=== PATIENT | male | born 1945 | race Caucasian/White ===

== ENCOUNTER 2017-03-23 12:10 | Emergency (ER) | payer MEDICARE, OTHER ==
[2017-03-23] MEDS ORDERED: methylPREDNISolone Sodium Succinate 125 MG/2 ML SDV ONE (12:22)
[2017-03-23] MEDS ORDERED: methylPREDNISolone Sodium Succinate 125 MG/2 ML SDV IVPUSH ONE (12:23)
[2017-03-23] MEDS ORDERED: Albuterol/Ipratropium 3.0-0.5 MG/3 ML Neb Soln ONE ×2 (12:23→12:35)
[2017-03-23] MEDS ORDERED: Aspirin 81 MG Tab.Chew PO ONE (12:30)
[2017-03-23] MEDS ORDERED: Nitroglycerin/D5W 25 MG/250 ML BOTTLE IV SCH (12:30)
[2017-03-23] MEDS: Terbutaline 1 MG/ML SDV SUBCUT SCH ×2 (12:31→13:05)
[2017-03-23] MEDS: Nitroglycerin 0.4 MG Tab.SL SL PRN ×3 (12:33→12:43)
[2017-03-23] MEDS ORDERED: Morphine 4 MG/ML Syringe IVPUSH STA (12:35)
[2017-03-23] MEDS: Sodium Chloride 0.9% 10 ML Syringe FLUSH PRN ×4 (12:38→13:07)
[2017-03-23] MEDS ORDERED: Sodium Chloride 0.9% 1,000 ML IV SCH ×2 (12:45→13:15)
[2017-03-23] MEDS ORDERED: cefTRIAXone 1,000 MG in Sodium Chloride 0.9% 50 ML IV ONE (12:47)
[2017-03-23] MEDS ORDERED: Albuterol/Ipratropium 3.0-0.5 MG/3 ML Neb Soln NEB ONE ×2 (13:24→13:25)
[2017-03-23 13:26] VITALS: BP 160/57
[2017-03-23] MEDS ORDERED: FLU Vacc QS 2017-18 (36mos UP)/PF 60 MCG/0.5 ML Syringe IM ONE (14:00)
--- NOTE | 2017-03-23 14:36 | CR ---
INDICATION: Short of breath. CHEST: An AP upright portable view of the chest was obtained. Calcification is noted in the arch of the aorta. Bipolar pacemaker leads are now seen with the ventricular lead tip in the area of the apex of the right ventricle. The heart appeared somewhat enlarged. Upper lung field pulmonary vasculature is prominent, suggesting the possibility of CHF. Interstitial markings are prominent, suggesting interstitial lung edema. It is difficult to exclude areas of patchy bronchopneumonia at the lung bases. Overlying EKG leads are noted. IMPRESSION: 1. ASHD, cardiomegaly, CHF, interstitial lung edema. The degree of CHF and interstitial lung edema may be somewhat increased compared with the previous study, which is approximately 2 years previous. 2. Cannot exclude areas of patchy bronchopneumonia in the lung bases. 3. Bipolar pacemaker leads. MTDD
[2017-03-23] MEDS ORDERED: Terbutaline 1 MG/ML SDV SUBCUT ONE (17:16)
--- NOTE | 2017-03-24 11:36 | ER ---
DATE SEEN: 03/23/2017 ADDENDUM: As the paramedics were lifting him up to get him off his cart and onto his gurney, he began to have recurrent episodes of cough and bronchospasm. 0.25 Terbutaline given subcu and also DuoNeb initiated. He is stable and ready for transport. The latter was given in the rig and terbutaline given to the patient before he left the ER. ASSESSMENT: Probable bronchospasm, acute. Mirroring what he experienced prior to his acceleration of symptoms and deterioration of respiratory status. At this time, the coughing spell was controlled. /[id number] BRIAN/RIAN
--- NOTE | 2017-03-24 12:52 | ER ---
DATE SEEN: 03/23/2017 TIME SEEN: The patient was seen on arrival at 1210 hours. HISTORY OF PRESENT ILLNESS: This 72-year-old male with chronic obstructive lung disease, noted he took his dog to the veterinary this morning and then after he got out, he went shopping. He became progressively more short of breath and drove himself to the hospital. On arrival, he was an extremis. He had marked difficulty breathing and bronchospasm. PRIMARY SURVEY: A. Airway - open and patent. B. Breathing - air exchange in lungs, decreased air exchange. C. Elevated blood pressure 184/87, 195/95, 161/74. The patient has marked dyspnea, marked accessary muscle breathing and has difficulty exchanging air. Lips, perioral cyanosis, mild. No chest wall discomfort. Extremities without edema. Abdomen, no bruits noted. Heart, no rhythm disturbance. The following measures were instituted. The patient was given stat terbutaline 0.25 subcu, DuoNeb, flush of 300 mL normal saline, EKG and labs obtained. Ceftriaxone 1000 mg IV, flu vaccine (later), methylprednisolone, Solu-Medrol 125 mg IV, and morphine IV push 4 mg. Other studies obtained; blood cultures, urinalysis, chest x-ray. Stat chest x- ray demonstrated infiltrate in right lower lobe. SECONDARY EXAMINATION: VITAL SIGNS: Blood pressure coming down at 158/80, heart rate no longer 114 and has come down to 92. Respirations at the highest were 30 and came down to 22. End-tidal CO2 remained at 20 and came down to 21 and stayed at 21. GENERAL: Alert man, unshaven. Has mustache. He no longer has anxiety about breathing. He is already 20% improved. NECK AND HEENT: No tenderness. No cervical adenopathy. Mild stiffness. No decreased range of motion. Pharynx without abnormality. Dry mucosa. No erythema. Edentulous. TMs negative. PERRLA intact. LUNGS: Coarse breath sounds, sonorous musical rales are less. They have resolved. Rales noted in his lungs bilaterally, anterior and posterior. Not extensive. HEART: S1, S2. No irregular, rate and rhythm. No S3, no S4. ABDOMEN: Soft. No guarding. No abdominal discomfort. No bruits. CHEST: No chest wall discomfort to palpation. BACK: No spinous process tenderness in the cervical, thoracic, or lumbar spine. No paraspinal muscle spasm. EXTREMITIES: Without edema. No tenderness of vascular structures. MUSCULOSKELETAL: Range of motion in upper and lower extremities normal. Joints without abnormality. No thickening of joints. DERMIS: Mild clubbing. No cyanosis. No acrocyanosis. Cyanosis of the lips has resolved. WORKING DIAGNOSES: Rule out myocardial infarction, rule out bronchospasm with respiratory distress, rule out early respiratory distress syndrome, rule out pneumothorax, rule out pneumonia, rule out aspiration pneumonia, rule out gastrointestinal bleed, rule out myocardial infarction, rule out pulmonary embolus. LABORATORY FINDINGS: ABGs at 7.34, pCO2 38, PO2 82, bicarb 21, oxygen saturation 96%, -3.9 base excess nasal cannula 2 L. White count 16,200, PMNs 79, lymphocytes 13, monos 1, atypical lymphocytes 2. Hemoglobin 16.9, platelets 284,000. Complete metabolic panel; sodium 131, potassium 4, chloride 98, bicarb 19, BUN 14, creatinine 0.9. GFR greater than 60. Glucose 179, lactic acid 3.8, BNP 1150 and troponin 0.09, repeat troponin 0.16. Total protein 6.8. Initially there was concern regarding abnormality of pacemaker. It appears to be pacing and sensing, and there is no suggestion of block. On review of his EKG rhythm strips with Dr. Treadwell, house sitter, he noted that the pacemaker was trying to pace during refractory period, hence his paced beat did not penetrate, but then would penetrate a fraction of a second later. He thought the pacemaker is stable, and he also felt that EKGs did not suggest any myocardial infarction, and said if the subsequent troponin tests are elevated, consider transferring for further evaluation and/or stress test and/or catheterization and/or CT angiography of his heart. The patient's troponin tests did elevate. The patient's respiratory status improved to the point where he felt he was within 10% of normal. His respiratory rate came down to low 20s, 21, and 22. His blood pressure was 147/82 and oxygen saturation 90s. The O2 has slowly turned down. End-tidal CO2 was in the 21s. DIAGNOSES: 1. Respiratory distress with etiology possibly secondary to bronchospasm and anxiety, accelerated by fear with associated chronic obstructive pulmonary disease and pulmonary hypertension. 2. Pulmonary hypertension resolved with nitroglycerin, and the patient's respiratory status improved as well as using nitroglycerin plus terbutaline plus the [id number] DuoNebs. 3. Pacemaker placed and is working. It senses and is working satisfactorily. Paced rhythm results in wide QRS complex, ventricular complexes. No evidence for ST elevation. 4. Kkx-VS-[id number] elevation myocardial infarction. 5. Smoking abuse, chronic obstructive pulmonary disease. 6. Status post atrial fibrillation with ablation 7 years ago with pacemaker placed. 7. Edentulous. 8. Elevated BNP-mild. 9. Heart failure - needs to be followed. 10.Pneumonia with right lower lobe infiltrate. Lactic acid is 3.6, white count 16,200, PMNs 79, lymphocytes 13, and monos 1. 11.D-dimer elevation is consistent with his age and not considering pulmonary embolus. The patient's status was talked initially with Dr. Treadwell and then also talked with Dr. Feldman, hospitalist. The patient will be followed by hospitalist and will be transferred to [facility]. TIME SPENT WITH PATIENT: 1 hour and 20 minutes. /[id number] BRIAN/RIAN HENDERSON
== END 2017-03-23 17:14 ==
LOC: FB.ED 12:10
DX: J18.9 Pneumonia, unspecified organism (principal); R06.03 Acute respiratory distress; I21.4 Non-ST elevation (NSTEMI) myocardial infarction; I27.20 Pulmonary hypertension, unspecified; I50.9 Heart failure, unspecified; J44.9 Chronic obstructive pulmonary disease, unspecified; Z95.0 Presence of cardiac pacemaker; F17.210 Nicotine dependence, cigarettes, uncomplicated; I48.91 Unspecified atrial fibrillation; K08.109 Complete loss of teeth, unspecified cause, unspecified class; R79.89 Other specified abnormal findings of blood chemistry
CPT/HCPCS: 36415; 36600; 71010; 80053; 81001; 82803; 83605; 83880; 84443; 84484; 85025; 85379; 87040; 93005; 94640; 96365; 96366; 96368; 96372; 96375; 99285; A9270; J0696; J2270; J2930; J3105; J7040; J7050; J7620

== ENCOUNTER 2018-07-28 11:41 | Emergency (ER) | payer MEDICARE, OTHER ==
[2018-07-28] MEDS ORDERED: Sodium Phosphate,Monobasic/Sodium Phosphate,Dibasic Enema 133 ML Bottle RECTAL ONE (12:07)
[2018-07-28] MEDS ORDERED: Levofloxacin 500 MG Tab PO ONE (12:32)
--- NOTE | 2018-07-28 12:34 | EDM.PDOC ---
ED HPI GENERAL MEDICAL PROBLEM - General Chief Complaint: Gastrointestinal Problem Stated Complaint: SHINGLES CONSTIPATION Time Seen by Provider: 07/28/18 11:41 Source of Information: Reports: Patient History Limitations: Reports: No Limitations - History of Present Illness INITIAL COMMENTS - FREE TEXT/NARRATIVE: 73 y.o.w.m with a H/O HTN came to the ed due to abd. pain, not having a BM for 5 days. He has to the to the bathroom 5-6 times at night to void, each time small amounts of urine. No N/V no Dizziness, no lightheadedness, no trauma. He was recently diagnosed with abd. all shingles for which he takes acyclovir. No other acute medical issues. BP 136/67 RR 20 Temp 36.8 Pulse 70 Pulse ox 98% on RA Onset Date: 07/23/18 Onset Time: 08:00 Duration: Day(s):, Getting Worse Location: Reports: Abdomen Quality: Reports: Ache, Dull, Throbbing Severity: Moderate Improves with: Reports: None Worsens with: Reports: Movement Context: Reports: Other Associated Symptoms: Reports: No Other Symptoms Abdomen Pain Score (Numeric/FACES): 5 - Related Data Allergies Allergy/AdvReac Type Severity Reaction Status Date / Time No Known Allergies Allergy Verified 07/28/18 11:50 Home Meds: Home Meds Fluticasone/Salmeterol [Advair 250-50 Diskus] 1 puff INH BID 07/28/18 [History] Furosemide 20 mg PO DAILY 07/28/18 [History] Losartan [Cozaar] 25 mg PO DAILY 07/28/18 [History] Triamcinolone Acetonide [Triamcinolone Acetonide 0.1% Crm] 1 applic TOP BID [History] amLODIPine Besylate [Amlodipine Besylate] 10 mg PO DAILY 07/28/18 [History] valACYclovir HCl [valACYclovir] 1 tab PO TID 07/28/18 [History] Past Medical History HEENT History: Reports: Impaired Vision Cardiovascular History: Reports: High Cholesterol, Hypertension, Pacemaker, Stents, Other (See Below) Other Cardiovascular History: 3 stents placed in 1999 Respiratory History: Reports: SOB Gastrointestinal History: Reports: Other (See Below) Other Gastrointestinal History: Constipation - Past Surgical History GI Surgical History: Reports: Colonoscopy Social & Family History - Family History Family Medical History: Noncontributory - Tobacco Use Smoking Status *Q: Current Every Day Smoker Years of Tobacco use: 60 Packs/Tins Daily: 0.5 - Caffeine Use Caffeine Use: Reports: Coffee - Recreational Drug Use Recreational Drug Use: No ED ROS GENERAL - Review of Systems Review Of Systems: See Below Constitutional: Reports: No Symptoms HEENT: Reports: No Symptoms Respiratory: Reports: No Symptoms Cardiovascular: Reports: No Symptoms Endocrine: Reports: No Symptoms GI/Abdominal: Reports: Abdominal Pain, Constipation : Reports: Dysuria Musculoskeletal: Reports: No Symptoms Skin: Reports: Other (shingels at abd. wall) Neurological: Reports: No Symptoms Psychiatric: Reports: No Symptoms Hematologic/Lymphatic: Reports: No Symptoms Immunologic: Reports: No Symptoms ED EXAM, GI/ABD - Physical Exam Exam: See Below Exam Limited By: No Limitations General Appearance: Alert, WD/WN, Moderate Distress Eyes: Bilateral: Normal Appearance Ears: Normal External Exam, Normal Canal Nose: Normal Inspection Throat/Mouth: Normal Lips, Normal Voice, No Airway Compromise Head: Atraumatic, Normocephalic Neck: Normal Inspection, Supple, Non-Tender, Full Range of Motion Respiratory/Chest: No Respiratory Distress, Lungs Clear, Normal Breath Sounds, Chest Non-Tender Cardiovascular: Normal Peripheral Pulses, Regular Rate, Rhythm, No Edema, No Gallop GI/Abdominal Exam: Distended, Rigid, Rebound, Tender, Mass (Male) Exam: No Hernia Rectal (Males) Exam: Deferred Back Exam: Normal Inspection, Full Range of Motion Extremities: Normal Inspection, Normal Range of Motion, Non-Tender Neurological: Alert, Oriented, CN II-XII Intact, Normal Cognition, Normal Gait Psychiatric: Normal Affect, Normal Mood Skin Exam: Warm, Dry, Intact, Normal Color, No Rash Lymphatic: No Adenopathy EKG INTERPRETATION EKG Date: 07/28/18 Time: 15:30 Rhythm: Other (Atrial - Ventricular dual paced rhythm) Rate (Beats/Min): 72 [place]: Normal P-Wave: Absent QRS: Wide ST-T: Depressed QT: Prolonged Course - Vital Signs Text/Narrative:: 73 y.o.w.m with a H/O HTN came to the ed due to abd. pain, not having a BM for 5 days. He has to the to the bathroom 5-6 times at night to void, each time small amounts of urine. No N/V no Dizziness, no lightheadedness, no trauma. He was recently diagnosed with abd. all shingles for which he takes acyclovir. No other acute medical issues. BP 136/67 RR 20 Temp 36.8 Pulse 70 Pulse ox 98% on RA PE: WNWD w M with abd. pain with distension, Dysuria, no BM for 5 days, abd. wall shingles Imaging: Abd flat upright: Calcified AAA, Mild/mod constipation as per RAD Imaging: angio abd. CT: Infrarenal AAA measuring 5.6cm X 7.7 cm with posterior ulceration, most likely a dissecting AAA as per RAD. Enlarged prostate 7.2 x 5.2 cm Labs: CBC nl BMP: Na 130 K 3.9 BUN 19 Cr 1.0 GFR >60 INR 1.13 UA: Pos for Leucocyte esterase, >100 WBC and > 100 RBC Procedure: Nurse was unable to place a ordonez cath due to enlarged prostate Impression: 1) Infrarenal AAA measuring 5.6cm X 7.7 cm with ulceration, most likely dissecting. 2) Enlarged prostate 7.2 x 5.2 cm, 3) Right abd. wall shingles, 4) Constipation. 5) UTI with urinary retention, 6) Hyponatremia 7) H/O HTN Tx: 2 I.Vs were placed with NS 125 cc/hr, Levaquin, Morphine, Zofran, unable to place Ordonez cath 2.10 pm Consultation: Dr. Freitas, Surgeon: Pt needs to be transferred to [place] 2.15 pm Consultation: Dr. Farooq, Vascular Surgeon. [facility]: Pt accepted PT for transfer and further care. Reexam: improved, abd. pain most likely related to AAA as per RAD. Plan: Transfer to [facility] by EMS (Pt's does not drive car), direct admit to: ER 45. Phone number to call Report: [phone] Last Recorded V/S: Last Vital Signs Temp 36.6 C 07/28/18 15:32 Pulse 73 07/28/18 15:32 Resp 18 07/28/18 15:32 BP 152/74 H 07/28/18 15:32 Pulse Ox 94 L 07/28/18 15:32 - Orders/Labs/Meds Orders: Active Orders 24 hr Category Date Time Status Ordonez Catheter Insertion [Insert Urinary Catheter] [OM. Care 07/28/18 14:30 Ordered PC] Q24H Urinary Catheter Assessment [RC] QSHIFT Care 07/28/18 14:25 Active CULTURE URINE [RM] Stat Lab 07/28/18 12:12 Received Peripheral IV Insertion Adult [OM.PC] Routine Oth 07/28/18 13:02 Ordered EKG 12 Lead [EK] Routine Ther 07/28/18 15:17 Ordered Labs: Laboratory Tests 07/28/18 07/28/18 07/28/18 Range/Units 12:12 12:35 12:35 WBC 7.2 (4.5-12.0) X10-3/uL RBC 4.83 (4.30-5.75) x10(6)uL Hgb 15.3 (11.5-15.5) g/dL Hct 45.3 (30.0-51.3) % MCV 93.8 (80-96) fL MCH 31.8 (27.7-33.6) pg MCHC 33.9 (32.2-35.4) g/dL RDW 12.7 (11.5-15.5) % Plt Count 188 (125-369) X10(3)uL MPV 8.1 (7.4-10.4) fL Neut % (Auto) 67.5 (46-82) % Lymph % (Auto) 18.0 (13-37) % Gibson % (Auto) 12.5 H (4-12) % Eos % (Auto) 2 (1.0-5.0) % Baso % (Auto) 0 (0-2) % Neut # (Auto) 4.9 (1.6-8.3) # Lymph # (Auto) 1.3 (0.6-5.0) # Gibson # (Auto) 0.9 (0.0-1.3) # Eos # (Auto) 0.1 (0.0-0.8) # Baso # (Auto) 0.0 (0.0-0.2) # PT 11.4 H (8.7-11.1) INR 1.18 H (0.89-1.13) Sodium (135-145) mmol/L Potassium (3.5-5.3) mmol/L Chloride (100-110) mmol/L Carbon Dioxide (21-32) mmol/L BUN (7-18) mg/dL Creatinine (0.70-1.30) mg/dL Est Cr Clr Drug Dosing mL/min Estimated GFR (MDRD) (>60) BUN/Creatinine Ratio (9-20) Glucose (80-116) mg/dL Calcium (8.6-10.2) mg/dL Urine Color Yellow (YELLOW) Urine Appearance Cloudy (CLEAR) Urine pH 5.0 (5.0-6.5) Ur Specific [place] 1.020 (1.010-1.025) Urine Protein Trace (NEGATIVE) mg/dL Urine Glucose (UA) Normal (NEGATIVE) mg/dL Urine Ketones Negative (NEGATIVE) mg/dL Urine Occult Blood Large H (NEGATIVE) Urine Nitrite Negative (NEGATIVE) Urine Bilirubin Small H (NEGATIVE) Urine Urobilinogen 1 H (NEGATIVE) mg/dL Ur Leukocyte Esterase Large H (NEGATIVE) Urine RBC >100 H (0) Urine WBC >100 H (0) Ur Squamous Epith Cells Occasional (NS,R,O) Urine Bacteria Many H (NS) 07/28/18 Range/Units 12:35 WBC (4.5-12.0) X10-3/uL RBC (4.30-5.75) x10(6)uL Hgb (11.5-15.5) g/dL Hct (30.0-51.3) % MCV (80-96) fL MCH (27.7-33.6) pg MCHC (32.2-35.4) g/dL RDW (11.5-15.5) % Plt Count (125-369) X10(3)uL MPV (7.4-10.4) fL Neut % (Auto) (46-82) % Lymph % (Auto) (13-37) % Gibson % (Auto) (4-12) % Eos % (Auto) (1.0-5.0) % Baso % (Auto) (0-2) % Neut # (Auto) (1.6-8.3) # Lymph # (Auto) (0.6-5.0) # Gibson # (Auto) (0.0-1.3) # Eos # (Auto) (0.0-0.8) # Baso # (Auto) (0.0-0.2) # PT (8.7-11.1) INR (0.89-1.13) Sodium 130 L (135-145) mmol/L Potassium 3.9 (3.5-5.3) mmol/L Chloride 96 L (100-110) mmol/L Carbon Dioxide 27 (21-32) mmol/L BUN 19 H (7-18) mg/dL Creatinine 1.0 (0.70-1.30) mg/dL Est Cr Clr Drug Dosing 62.43 mL/min Estimated GFR (MDRD) > 60 (>60) BUN/Creatinine Ratio 19.0 (9-20) Glucose 97 (80-116) mg/dL Calcium 8.8 (8.6-10.2) mg/dL Urine Color (YELLOW) Urine Appearance (CLEAR) Urine pH (5.0-6.5) Ur Specific [place] (1.010-1.025) Urine Protein (NEGATIVE) mg/dL Urine Glucose (UA) (NEGATIVE) mg/dL Urine Ketones (NEGATIVE) mg/dL Urine Occult Blood (NEGATIVE) Urine Nitrite (NEGATIVE) Urine Bilirubin (NEGATIVE) Urine Urobilinogen (NEGATIVE) mg/dL Ur Leukocyte Esterase (NEGATIVE) Urine RBC (0) Urine WBC (0) Ur Squamous Epith Cells (NS,R,O) Urine Bacteria (NS) Meds: Medications Discontinued Medications Generic Name Dose Route Start Last Admin Trade Name Freq PRN Reason Stop Dose Admin Sodium Chloride 1,000 mls @ 125 mls/hr 07/28/18 14:30 07/28/18 14:27 Normal Saline IV 125 mls/hr ASDIRECTED SELMA Administration Iopamidol 75 ml 07/28/18 13:07 07/28/18 13:28 Isovue-370 (76%) IV 07/28/18 13:08 75 ml ONETIME ONE Administration Levofloxacin 500 mg 07/28/18 12:32 07/28/18 12:35 Levaquin PO 07/28/18 12:33 500 mg ONETIME ONE Administration Morphine Sulfate 2 mg 07/28/18 14:44 07/28/18 15:07 Morphine IVPUSH 07/28/18 14:45 2 mg ONETIME ONE Administration Ondansetron HCl 8 mg 07/28/18 14:44 07/28/18 15:02 Zofran IVPUSH 07/28/18 14:45 8 mg ONETIME ONE Administration Sodium Biphosphate/Sodium Phosphate 133 ml 07/28/18 12:07 07/28/18 12:36 Fleet Enema RECTAL 07/28/18 12:08 Not Given ONETIME ONE Sodium Chloride 10 ml 07/28/18 13:02 07/28/18 14:24 Saline Flush FLUSH 10 ml ASDIRECTED PRN Administration Keep Vein Open Departure - Departure Time of Disposition: 17:00 Disposition: DC/Tfer to Acute Hospital 02 Condition: Fair Clinical Impression: AAA (abdominal aortic aneurysm) Qualifiers: Presence of rupture: without rupture Qualified Code(s): I71.4 - Abdominal aortic aneurysm, without rupture - Discharge Information Referrals: Jermaine Jerez MD [Primary Care Provider] - Forms: ED Department Discharge - My Orders Last 24 Hours: My Active Orders 07/28/18 12:12 CULTURE URINE [RM] Stat 07/28/18 13:02 Peripheral IV Insertion Adult [OM.PC] Routine 07/28/18 14:25 Urinary Catheter Assessment [RC] QSHIFT 07/28/18 14:30 Ordonez Catheter Insertion [Insert Urinary Catheter] [OM.PC] Q24H 07/28/18 15:17 EKG 12 Lead [EK] Routine - Assessment/Plan Last 24 Hours: My Active Orders 07/28/18 12:12 CULTURE URINE [RM] Stat 07/28/18 13:02 Peripheral IV Insertion Adult [OM.PC] Routine 07/28/18 14:25 Urinary Catheter Assessment [RC] QSHIFT 07/28/18 14:30 Ordonez Catheter Insertion [Insert Urinary Catheter] [OM.PC] Q24H 07/28/18 15:17 EKG 12 Lead [EK] Routine
[2018-07-28] MEDS: Sodium Chloride 0.9% 10 ML Syringe FLUSH PRN ×2 (13:02→14:24)
[2018-07-28] MEDS ORDERED: Iopamidol 755 Mg/ML 75 ML Bottle IV ONE (13:07)
--- NOTE | 2018-07-28 14:03 | CR ---
INDICATION: Abdominal pain. ABDOMEN: Four images of the abdomen in supine and upright projections revealed some very minimal air fluid levels in the left flank with no distention of the bowel. These may be incidental to fluid intake. No significant distention of bowel to suggest a mechanically obstructive process could be identified. No evidence of free air was seen. In the mid to distal abdominal aorta, there is an aneurysm calcified, measuring 56 mm transversely and extending over at least 89 mm of the craniocaudad diameter of the aorta. This is a significant in size aneurysm. Further workup may be warranted. Otherwise, no organomegaly or mass lesions were suggested. No nonvascular pathologic calcifications were identified. The lower lung lr included in the study appeared negative for an acute process. The heart did not appear grossly enlarged but was somewhat prominent. Bipolar pacemaker leads are noted in place. A mass in the pelvis is most likely a slightly distended urinary bladder. IMPRESSION: 1. Large abdominal aortic aneurysm measuring 5.6 mm in maximum diameter. 2. Mild dextroconvex scoliosis thoracolumbar spine with dextroconcave scoliosis low middle lumbar spine. 3. Minimal air fluid levels in the left flank, most likely incidental - no mechanically obstructive process or significant amount of stool is identified to suggest an obstruction or significant constipation. Report was given by phone to Dr. Marroquin immediately after the examination was available on 07/28/18. [facility]
[2018-07-28] MEDS ORDERED: Sodium Chloride 0.9% 1,000 ML IV SCH (14:30)
[2018-07-28] MEDS ORDERED: Ondansetron 4 MG/2 ML SDV IVPUSH ONE (14:44)
[2018-07-28] MEDS ORDERED: Morphine 2 MG/ML Syringe IVPUSH ONE (14:44)
--- NOTE | 2018-07-28 14:45 | CT ---
INDICATION: Abdominal pain, abdominal aortic aneurysm, question dissection or ulceration. COMPUTERIZED TOMOGRAPHY ANGIOGRAPHY OF THE ABDOMEN FOR AORTOGRAM: Spiral 2.5 mm axial sections were obtained through the abdomen and pelvis with 75 mL Isovue 370 at 3 mL/second with sagittal and coronal reconstructions and additional 3-D processing. Examination was obtained 07/28/18 - no comparisons, except for an abdomen x-ray of the same date. Total exam DLP = 496.54 mGy-cm. An abdominal aortic aneurysm is noted, infrarenal by several centimeters, with mural thrombus measuring 45 mm to 50 mm in maximum diameter over a 76 mm craniocaudad length of the aorta. The lumen was variable at approximately 25 mm in the proximal portion of the aneurysm, decreasing to 13 mm in the distal portion of the aneurysm. Along the posterior aspect of the proximal portion of the aneurysm, there is what appears to be a large ulcer, which measures on the order of 8.7 mm in craniocaudad diameter and approximately 8.2 mm transversely. Early dissection may be present along the inferior aspect of this ulcer. Along the left lateral aspect of the mural thrombus, there is some linear calcific or possibly even contrast density, which could represent a site of dissection. Immediate further workup is recommended, due to the contrast appearing to extent to the outermost portion of the wall of the aorta along the medial aspect of this aneurysm. No leakage from the aneurysm was identified. What appears to be the appendix was normal in appearance, seen on coronal images #50 through #53 and axial images #112 through #130. No retroperitoneal masses were identified. No free air or bowel obstruction was seen. No gallstones were demonstrated. The liver, spleen, and pancreas appear to be normal. The heart is enlarged. No pericardial effusion was seen, however. The lower lung lr and pleural spaces visualized showed no definite acute process. There is some emphysematous change. No additional organomegaly, mass lesions, or free fluid collections were identified in the abdomen or pelvis, except to note a markedly enlarged prostate , which measures 52 x 62 x 72 mm. The adrenal gland and kidney on the right appeared normal. The left kidney appeared fairly normal with mild scarring. The adrenal gland on the left is somewhat prominent, low in density, raising question of a small adrenal adenoma. IMPRESSION: 1. Large abdominal aortic aneurysm with ulceration and possible dissection. Further workup recommended. 2. Enlarged prostate with impingement on the floor of the bladder, which is marked. Cannot exclude neoplasia. Bladder wall is thickened also. 3. Normal appearing appendix. 4. ASHD with cardiomegaly. 5. Possible adrenal adenoma of small size, left adrenal. Report was given by phone to Dr. Marroquin at 1417 hours on 07/28/18. [facility]
[2018-07-28 15:33] VITALS: BP 152/74
== END 2018-07-28 15:47 ==
LOC: FB.ED 11:41
DX: I71.4 Abdominal aortic aneurysm, without rupture (principal); N40.1 Benign prostatic hyperplasia with lower urinary tract symptoms; R33.8 Other retention of urine; N39.0 Urinary tract infection, site not specified; B02.9 Zoster without complications; E78.00 Pure hypercholesterolemia, unspecified; I10 Essential (primary) hypertension; F17.210 Nicotine dependence, cigarettes, uncomplicated; K59.00 Constipation, unspecified; E87.1 Hypo-osmolality and hyponatremia; Z95.5 Presence of coronary angioplasty implant and graft; Z79.899 Other long term (current) drug therapy
CPT/HCPCS: 36415; 74019; 74174; 80048; 81001; 85025; 85610; 87086; 93005; 96361; 96374; 99285; A9270; J2270; J2405; J7030; Q9967

== ENCOUNTER 2018-07-31 11:11 | Emergency (ER) | payer MEDICARE, OTHER ==
[2018-07-31] MEDS ORDERED: Sodium Chloride 0.9% 10 ML Syringe FLUSH PRN (11:41)
--- NOTE | 2018-07-31 11:50 | EDM.PDOC ---
ED HPI GENERAL MEDICAL PROBLEM - General Chief Complaint: Gastrointestinal Problem Stated Complaint: JANNETH/ VIVIAN Time Seen by Provider: 07/31/18 11:44 Source of Information: Reports: Patient History Limitations: Reports: No Limitations - History of Present Illness INITIAL COMMENTS - FREE TEXT/NARRATIVE: Presents with mild generalized abdominal pain and constipation x 1 week, no improvement with OTC stool softners. Transferred to [facility] on 07/28/18 from [facility] for evaluation of a large AAA. Patient was subsequently discharged after being advised that he did not need repair of the aneurysm as it was not large enough. Currently being treated with Valtrex for Shingles, is not taking narcotic pain medication. Duration: Week(s): (1) Quality: Reports: Dull Severity: Mild abdomen Pain Score (Numeric/FACES): 2 - Related Data Allergies Allergy/AdvReac Type Severity Reaction Status Date / Time No Known Allergies Allergy Verified 07/31/18 13:25 Home Meds: Home Meds Fluticasone/Salmeterol [Advair 250-50 Diskus] 1 puff INH BID 07/28/18 [History] Furosemide 20 mg PO DAILY 07/28/18 [History] Losartan [Cozaar] 25 mg PO DAILY 07/28/18 [History] Triamcinolone Acetonide [Triamcinolone Acetonide 0.1% Crm] 1 applic TOP BID [History] amLODIPine Besylate [Amlodipine Besylate] 10 mg PO DAILY 07/28/18 [History] valACYclovir HCl [valACYclovir] 1 tab PO TID 07/28/18 [History] Cefuroxime Axetil [Ceftin] 500 mg PO BID #14 tablet 07/31/18 [Rx] Sodium Chloride 0.9% [Saline Flush] 10 ml FLUSH ASDIRECTED PRN syringe [Rx] Past Medical History HEENT History: Reports: Impaired Vision Cardiovascular History: Reports: Aneurysm (AAA), High Cholesterol, Hypertension , Pacemaker, Stents, Other (See Below) Other Cardiovascular History: 3 stents placed in 1999 Respiratory History: Reports: COPD Gastrointestinal History: Reports: Other (See Below) Other Gastrointestinal History: Constipation - Past Surgical History GI Surgical History: Reports: Colonoscopy Social & Family History - Family History Family Medical History: Noncontributory - Tobacco Use Smoking Status *Q: Current Every Day Smoker Tobacco Use Within Last Twelve Months: Cigarettes - Caffeine Use Caffeine Use: Reports: Coffee - Alcohol Use Alcohol Use History: Yes Alcohol Use Frequency: Rarely - Recreational Drug Use Recreational Drug Use: No ED ROS GENERAL - Review of Systems Review Of Systems: ROS reveals no pertinent complaints other than HPI. Respiratory: Reports: Cough (chronic) ED EXAM, GI/ABD - Physical Exam Exam: See Below Exam Limited By: No Limitations General Appearance: Alert, WD/WN, No Apparent Distress Ears: Normal External Exam Nose: Normal Inspection Throat/Mouth: No Airway Compromise Head: Atraumatic, Normocephalic Neck: Full Range of Motion Respiratory/Chest: No Respiratory Distress, Normal Breath Sounds Cardiovascular: Regular Rate, Rhythm, No Murmur GI/Abdominal Exam: Normal Bowel Sounds, Soft, Tender (mild generalized) Extremities: Normal Range of Motion Neurological: Alert, Normal Cognition Skin Exam: Warm, Dry, Other (vesicular rash to abdomen) Course - Vital Signs Last Recorded V/S: Last Vital Signs Temp 36.4 C 07/31/18 14:20 Pulse 70 07/31/18 14:20 Resp 16 07/31/18 14:20 BP 134/65 07/31/18 14:20 Pulse Ox 99 07/31/18 14:20 - Orders/Labs/Meds Labs: Laboratory Tests 07/31/18 07/31/18 07/31/18 Range/Units 11:55 11:55 12:52 WBC 6.1 (4.5-12.0) X10-3/uL RBC 4.61 (4.30-5.75) x10(6)uL Hgb 14.6 (11.5-15.5) g/dL Hct 42.6 (30.0-51.3) % MCV 92.5 (80-96) fL MCH 31.7 (27.7-33.6) pg MCHC 34.2 (32.2-35.4) g/dL RDW 12.9 (11.5-15.5) % Plt Count 211 (125-369) X10(3)uL MPV 8.0 (7.4-10.4) fL Neut % (Auto) 69.8 (46-82) % Lymph % (Auto) 18.2 (13-37) % [place] % (Auto) 8.7 (4-12) % Eos % (Auto) 3 (1.0-5.0) % Baso % (Auto) 0 (0-2) % Neut # (Auto) 4.3 (1.6-8.3) # Lymph # (Auto) 1.1 (0.6-5.0) # [place] # (Auto) 0.5 (0.0-1.3) # Eos # (Auto) 0.2 (0.0-0.8) # Baso # (Auto) 0.0 (0.0-0.2) # Sodium 130 L (135-145) mmol/L Potassium 4.2 (3.5-5.3) mmol/L Chloride 98 L (100-110) mmol/L Carbon Dioxide 26 (21-32) mmol/L BUN 12 (7-18) mg/dL Creatinine 0.8 (0.70-1.30) mg/dL Est Cr Clr Drug Dosing TNP Estimated GFR (MDRD) > 60 (>60) BUN/Creatinine Ratio 15.0 (9-20) Glucose 95 (80-116) mg/dL Calcium 8.6 (8.6-10.2) mg/dL Total Bilirubin 0.7 (0.1-1.3) mg/dL AST 18 (5-25) IU/L ALT 19 (12-36) U/L Alkaline Phosphatase 90 (56-112) IU/L Total Protein 8.0 (6.0-8.0) g/dL Albumin 3.3 (3.2-4.6) g/dL Globulin 4.7 g/dL Albumin/Globulin Ratio 0.7 Amylase 42 (25-115) U/L Urine Color Yellow (YELLOW) Urine Appearance Clear (CLEAR) Urine pH 6.5 (5.0-6.5) Ur Specific [place] 1.010 (1.010-1.025) Urine Protein Negative (NEGATIVE) mg/dL Urine Glucose (UA) Normal (NEGATIVE) mg/dL Urine Ketones Negative (NEGATIVE) mg/dL Urine Occult Blood Moderate H (NEGATIVE) Urine Nitrite Negative (NEGATIVE) Urine Bilirubin Negative (NEGATIVE) Urine Urobilinogen Normal (NEGATIVE) mg/dL Ur Leukocyte Esterase Large H (NEGATIVE) Urine RBC 0-5 (0) Urine WBC 0-5 (0) Urine Bacteria Few H (NS) Meds: Medications Discontinued Medications Generic Name Dose Route Start Last Admin Trade Name Dutchq PRN Reason Stop Dose Admin Iopamidol 75 ml 07/31/18 12:56 07/31/18 13:17 Isovue-370 (76%) IV 07/31/18 12:57 75 ml ASDIRECTED ONE Administration Sodium Chloride 10 ml 07/31/18 11:41 07/31/18 12:45 Saline Flush FLUSH 10 ml ASDIRECTED PRN Administration Keep Vein Open - Radiology Interpretation Free Text/Narrative:: CT Abd/Pelvis w/ IV contrast: No change from 07/28/18 CT (large AAA with possible ulceration and dissection, per Dr. Nuñez). Dr. Ng ([place] [facility]) reviewed the 07/28/18 CT and does not visualize either an ulcer or dissection - Re-Assessments/Exams Free Text/Narrative Re-Assessment/Exam: 07/31/18 14:[address] Ng, recommends outpatient follow up. His office will call patient for an appointment. Departure - Departure Time of Disposition: 14:22 Disposition: Home, Self-Care 01 Condition: Good Clinical Impression: Abdominal aortic aneurysm (AAA) Qualifiers: Presence of rupture: without rupture Qualified Code(s): I71.4 - Abdominal aortic aneurysm, without rupture UTI (urinary tract infection) Qualifiers: Urinary tract infection type: acute cystitis Hematuria presence: with hematuria Qualified Code(s): N30.01 - Acute cystitis with hematuria Constipation Qualifiers: Constipation type: unspecified constipation type Qualified Code(s): K59.00 - Constipation, unspecified - Discharge Information *PRESCRIPTION DRUG MONITORING PROGRAM REVIEWED*: No *COPY OF PRESCRIPTION DRUG MONITORING REPORT IN PATIENT EILEEN: Not Applicable Prescriptions: Cefuroxime Axetil [Ceftin] 500 mg PO BID #14 tablet Instructions: Steps to Quit Smoking, [id number], Abdominal Aortic Aneurysm, [id number], Constipation, Adult, [id number], Urinary Tract Infection, Adult , [id number] Referrals: Shahid Robb MD [Primary Care Provider] - Mario Alberto Ng MD [Ordering Only Provider] - 1 Week Forms: ED Department Discharge Additional Instructions: Fill prescription for Ceftin and take as directed. Take OTC Magnesium Citrate as needed for constipation. Follow up with Dr. Berenice in 1 week. Return to the ER if symptoms worsen.
[2018-07-31] MEDS ORDERED: Iopamidol 755 Mg/ML 75 ML Bottle IV ONE (12:56)
--- NOTE | 2018-07-31 15:40 | CT ---
INDICATION: Re-evaluate abdominal aortic aneurysm. COMPUTERIZED TOMOGRAPHY ANGIOGRAPHY OF THE ABDOMEN AND PELVIS WITH CONTRAST: Spiral 2.5 mm axial sections were obtained through the abdomen and pelvis with 75 mL Isovue 370 at 4 mL/second with sagittal and coronal reconstructions, 07/31, and compared with 07/28/18 examination. Total exam DLP = 437.86 mGy-cm. There is again noted an abdominal aortic aneurysm, which appears identical in size and shape, compared with the previous study, measuring 45 x 49 mm in transverse and AP diameters, compared with 45 and 50 mm on the previous examination. There is again noted a possible ulceration and inability to exclude early dissection. The remainder of the CT of the abdomen and pelvis appeared stable. IMPRESSION: 1. Large abdominal aortic aneurysm with possible ulceration and early dissection, stable compared with 3 days prior. 2. Enlarged prostate with impingement on the floor of the bladder and thickening of the urinary bladder wall. 3. ASHD with cardiomegaly. 4. Probable adrenal adenoma of small size at the left adrenal. Report was called to Dr. Humphrey at 1350 hours on 07/31/18. [facility]
[2018-07-31 19:03] VITALS: BP 134/65
== END 2018-07-31 14:35 | disposition home or self-care (01) ==
LOC: FB.ED 11:11
DX: K59.00 Constipation, unspecified (principal); N30.01 Acute cystitis with hematuria; I71.4 Abdominal aortic aneurysm, without rupture; I10 Essential (primary) hypertension; J44.9 Chronic obstructive pulmonary disease, unspecified; F17.210 Nicotine dependence, cigarettes, uncomplicated
CPT/HCPCS: 36415; 74174; 80053; 81001; 82150; 85025; 87077; 87086; 87186; 99284; Q9967

== ENCOUNTER 2022-05-02 12:50 | Inpatient (IN) | payer MEDICARE ==
[2022-05-02] MEDS ORDERED: Albuterol/Ipratropium 3.0-0.5 MG/3 ML Neb Soln NEB ONE (14:27)
[2022-05-02] MEDS ORDERED: Dexamethasone 4 MG/ML SDV IVPUSH ONE ×2 (14:27→18:54)
[2022-05-02 14:28] LABS: ESTIMATED GFR 44 mL/min (>60)
[2022-05-02 14:29] LABS: CORONAVIRUS COVID-19 NAA NEGATIVE (NEGATIVE)
[2022-05-02 14:54] LABS: BASE EXCESS VENOUS,POC -1 mmol/L (-2 - 3+); PCO2 VENOUS,POC 39 mmHg (41-51)
[2022-05-02] MEDS ORDERED: Furosemide 20 MG/2 ML VIAL IVPUSH ONE (14:59)
[2022-05-02] MEDS ORDERED: traMADol 50 MG Tab PO PRN (17:13)
[2022-05-02] MEDS ORDERED: Nitroglycerin 0.4 MG Tab.SL SL PRN (17:13)
[2022-05-02] MEDS ORDERED: Albuterol 8 GM Inhaler INH PRN (17:13)
[2022-05-02] MEDS ORDERED: Dexamethasone 4 MG/ML 5 ML MDV IVPUSH ONE (17:25)
[2022-05-02] MEDS ORDERED: Dexamethasone 4 MG/ML SDV ONE (18:32)
[2022-05-02] MEDS: Carvedilol 25 MG Tab PO SCH (20:42)
[2022-05-02] MEDS: atorvaSTATin 40 MG Tab PO SCH (20:43)
[2022-05-02] MEDS ORDERED: Formoterol/Mometasone 200-5 MCG 8.8 GM Inhaler IH SCH (21:00)
[2022-05-03] MEDS: Albuterol/Ipratropium 3.0-0.5 MG/3 ML Neb Soln NEB PRN ×2 (01:27→16:29)
[2022-05-03 06:39] LABS: ESTIMATED GFR 48 mL/min (>60)
[2022-05-03] MEDS ORDERED: Sodium Chloride 0.9% 250 ML IV SCH (08:00)
[2022-05-03] MEDS ORDERED: traZODone 50 MG Tab PO PRN (08:17)
[2022-05-03] MEDS ORDERED: Dexamethasone 4 MG/ML SDV IVPUSH SCH (09:00)
[2022-05-03] MEDS: Carvedilol 25 MG Tab PO SCH ×2 (09:01→20:50)
[2022-05-03] MEDS: Formoterol/Mometasone 200-5 MCG 8.8 GM Inhaler IH SCH ×2 (09:03→20:50)
[2022-05-03] MEDS: Furosemide 20 MG/2 ML VIAL IVPUSH SCH (09:04)
[2022-05-03] MEDS ORDERED: 50% Dextrose in Water 50 ML Syringe IVPUSH PRN (11:44)
[2022-05-03] MEDS ORDERED: Glucagon,Human Recombinant 1 MG Vial IM PRN (11:44)
[2022-05-03] MEDS ORDERED: Insulin Lispro 100 Unit/ML 3 ML KwikPen SUBCUT ONE (12:44)
[2022-05-03] MEDS: Insulin Lispro 100 Unit/ML 3 ML KwikPen SUBCUT SCH ×2 (13:38→17:53)
[2022-05-03] MEDS: atorvaSTATin 40 MG Tab PO SCH (20:50)
[2022-05-04 06:30] LABS: ESTIMATED GFR 57 mL/min (>60)
[2022-05-04] MEDS: Carvedilol 25 MG Tab PO SCH ×2 (09:40→21:56)
[2022-05-04] MEDS: Furosemide 20 MG/2 ML VIAL IVPUSH SCH (09:40)
[2022-05-04] MEDS: Formoterol/Mometasone 200-5 MCG 8.8 GM Inhaler IH SCH ×2 (09:40→21:55)
[2022-05-04] MEDS: Insulin Lispro 100 Unit/ML 3 ML KwikPen SUBCUT SCH ×3 (09:42→17:59)
[2022-05-04] MEDS: Albuterol/Ipratropium 3.0-0.5 MG/3 ML Neb Soln NEB PRN (10:25)
[2022-05-04] MEDS ORDERED: Furosemide 40 MG/4 ML VIAL IVPUSH ONE (10:28)
[2022-05-04] MEDS ORDERED: Furosemide 20 MG Tab PO SCH (10:30)
[2022-05-04] MEDS ORDERED: Furosemide 20 MG/2 ML VIAL IVPUSH ONE (10:45)
[2022-05-04] MEDS: atorvaSTATin 40 MG Tab PO SCH (21:56)
[2022-05-05 06:50] LABS: ESTIMATED GFR 57 mL/min (>60)
[2022-05-05] MEDS: Insulin Lispro 100 Unit/ML 3 ML KwikPen SUBCUT SCH ×3 (08:21→18:10)
[2022-05-05] MEDS: Carvedilol 25 MG Tab PO SCH ×2 (08:25→21:38)
[2022-05-05] MEDS: Formoterol/Mometasone 200-5 MCG 8.8 GM Inhaler IH SCH ×2 (08:26→21:39)
[2022-05-05] MEDS: Furosemide 40 MG Tab PO SCH (08:28)
[2022-05-05] MEDS ORDERED: Sodium Chloride 0.9% 250 ML IV SCH (12:45)
[2022-05-05] MEDS: atorvaSTATin 40 MG Tab PO SCH (21:39)
[2022-05-06 03:09] VITALS: PULSE 70
[2022-05-06] MEDS: Insulin Lispro 100 Unit/ML 3 ML KwikPen SUBCUT SCH ×2 (08:59→12:21)
[2022-05-06 09:00] VITALS: BP 168/73
[2022-05-06] MEDS: Carvedilol 25 MG Tab PO SCH (09:00)
[2022-05-06] MEDS: Furosemide 40 MG Tab PO SCH (09:01)
[2022-05-06] MEDS: Formoterol/Mometasone 200-5 MCG 8.8 GM Inhaler IH SCH (09:01)
[2022-05-06] MEDS ORDERED: Sodium Chloride 0.9% 10 ML Syringe FLUSH PRN (10:21)
[2022-05-06] MEDS ORDERED: Insulin Lispro 100 Unit/ML 3 ML KwikPen SUBCUT ONE (13:59)
== END 2022-05-06 14:00 | disposition home or self-care (01) | DRG 813 ==
LOC: FB.ED 14:22 → FB.MS 15:17
PROVIDERS: ADMIT Family Medicine; ATTEND Family Medicine
DX: D69.3 Immune thrombocytopenic purpura (principal); I50.23 Acute on chronic systolic (congestive) heart failure; D69.6 Thrombocytopenia, unspecified; F17.210 Nicotine dependence, cigarettes, uncomplicated; J44.1 Chronic obstructive pulmonary disease with (acute) exacerbation; I48.20 Chronic atrial fibrillation, unspecified; I71.40 Abdominal aortic aneurysm, without rupture, unspecified; I11.0 Hypertensive heart disease with heart failure; E78.5 Hyperlipidemia, unspecified; I25.10 Atherosclerotic heart disease of native coronary artery without angina pectoris; Z20.822 Contact with and (suspected) exposure to COVID-19; F17.200 Nicotine dependence, unspecified, uncomplicated; E78.00 Pure hypercholesterolemia, unspecified; K59.00 Constipation, unspecified; H91.90 Unspecified hearing loss, unspecified ear; H54.7 Unspecified visual loss; Z79.899 Other long term (current) drug therapy; Z95.0 Presence of cardiac pacemaker; Z95.5 Presence of coronary angioplasty implant and graft
CPT/HCPCS: 0241U; 36415; 36430; 71046; 80048; 80053; 81001; 82270; 82947; 83880; 84484; 85025; 85379; 85610; 86850; 86900; 86901; 88104; 93005; 94150; 94640; 96374; 96375; 97165-GO; 99285-25; A9270-GY; J1100; J1815; J1940; J3490; J7050; J7620; P9034

== ENCOUNTER 2022-12-28 04:41 | Emergency (ER) | payer MEDICARE, MEDICAID ==
[2022-12-28] MEDS: methylPREDNISolone Sodium Succinate 125 MG/2 ML SDV IM ONE (04:56)
[2022-12-28] MEDS: Albuterol/Ipratropium 3.0-0.5 MG/3 ML Neb Soln NEB ONE (04:57)
[2022-12-28] MEDS: Sodium Chloride 0.9% 10 ML Syringe FLUSH PRN (05:00)
[2022-12-28 05:26] LABS: HEMOGLOBIN 11.2 g/dL (12.9-17.7); MEAN PLATELET VOLUME 8.5 fL (6.7-11.0); RED BLOOD CELL COUNT 3.64 x10(6)uL (3.90-5.90)
[2022-12-28 05:28] LABS: BASOPHILS PERCENT AUTO 0.4 % (0.3-3.8); EOSINOPHILS ABSOLUTE AUTO 0.2 x10-3/uL (0.0-0.6); EOSINOPHILS PERCENT AUTO 1.9 % (0.1-6.8); HEMATOCRIT 33.6 % (38.3-50.1); LYMPHOCYTES ABSOLUTE AUTO 1.1 x10-3/uL (0.5-4.5); LYMPHOCYTES PERCENT AUTO 10.8 % (15.8-45.3); MEAN CORPUSCULAR HEMOGLOBIN 30.8 pg (27.0-33.3); MEAN CORPUSCULAR HGB CONC 33.3 g/dL (28.7-35.3); MEAN CORPUSCULAR VOLUME 92.2 fL (80.8-98.7); MONOCYTES ABSOLUTE AUTO 0.3 x10-3/uL (0.0-1.2); NEUTROPHILS ABSOLUTE AUTO 8.5 x10-3/uL (1.7-6.9); NEUTROPHILS PERCENT AUTO 83.9 % (40.3-71.8); PLATELET COUNT,PLT 192 x10(3)uL (117-477); RED CELL DISTRIBUTION WIDTH 16.1 % (12.4-15.0); WHITE BLOOD CELL COUNT,WBC 10.1 x10-3/uL (3.2-10.1)
[2022-12-28 05:29] LABS: BLOOD UREA NITROGEN,BUN 24 mg/dL (7-18); CALCIUM 8.3 mg/dL (8.6-10.2); CARBON DIOXIDE,CO2 28 mmol/L (21-32); CHLORIDE,CL 104 mmol/L (100-110); ESTIMATED GFR 78 mL/min (>60); GLUCOSE RANDOM 212 mg/dL (80-116); POTASSIUM,K 3.8 mmol/L (3.5-5.3); SODIUM,NA 140 mmol/L (135-145)
[2022-12-28 05:35] LABS: A/G RATIO 0.5; ALANINE AMINOTRANSFERASE,ALT 73 U/L (12-36); ALBUMIN 2.8 g/dL (3.2-4.6); ALKALINE PHOSPHATASE 167 IU/L (56-112); ASPARTATE AMNIOTRANSFERASE,AST 42 IU/L (5-25); BILIRUBIN TOTAL 0.6 mg/dL (0.1-1.3); PROTEIN TOTAL,TP 8.7 g/dL (6.0-8.0)
[2022-12-28 05:38] LABS: BASE EXCESS VENOUS,POC -2 mmol/L (-2 - 3+); PCO2 VENOUS,POC 51 mmHg (41-51)
[2022-12-28 05:38] LABS: INR 1.2 (1.00-1.24); PROTHROMBIN TIME 12.3 sec (9.0-11.1); PTT,PARTIAL THROMBOPLSTIN TIME 27.5 SECONDS (24.4-33.2)
[2022-12-28 06:54] VITALS: BP 129/57; PULSE 70
== END 2022-12-28 07:05 ==
LOC: FB.ED 04:41
DX: J44.1 Chronic obstructive pulmonary disease with (acute) exacerbation (principal); E78.00 Pure hypercholesterolemia, unspecified; I10 Essential (primary) hypertension; Z95.5 Presence of coronary angioplasty implant and graft; Z91.011 Allergy to milk products; Z79.51 Long term (current) use of inhaled steroids; Z79.899 Other long term (current) drug therapy
CPT/HCPCS: 36415; 71045; 80053; 83880; 84484; 85025; 85610; 85730; 93005; 94640; 96372; 99285; J2930; J3490; J7620

== ENCOUNTER 2024-02-15 01:51 | Emergency (ER) | payer MEDICARE, MEDICAID ==
[2024-02-15] MEDS: Aspirin 81 MG Tab.Chew PO ONE (02:03)
[2024-02-15] MEDS: fentaNYL 100 MCG/2 ML SDV IVPUSH PRN (02:05)
[2024-02-15 02:17] LABS: HEMATOCRIT 25.1 % (38.3-50.1); HEMOGLOBIN 7.9 g/dL (12.9-17.7); MEAN CORPUSCULAR HEMOGLOBIN 31.2 pg (27.0-33.3); MEAN CORPUSCULAR HGB CONC 31.6 g/dL (28.7-35.3); MEAN CORPUSCULAR VOLUME 98.9 fL (80.8-98.7); MEAN PLATELET VOLUME 8.8 fL (6.7-11.0); PLATELET COUNT,PLT 237 x10(3)uL (117-477); RED BLOOD CELL COUNT 2.54 x10(6)uL (3.90-5.90); RED CELL DISTRIBUTION WIDTH 16.9 % (12.4-15.0); WHITE BLOOD CELL COUNT,WBC 12.2 x10-3/uL (3.2-10.1)
[2024-02-15 02:19] LABS: A/G RATIO 0.4; ALANINE AMINOTRANSFERASE,ALT 36 U/L (12-36); ALBUMIN 2.7 g/dL (3.2-4.6); ALKALINE PHOSPHATASE 110 IU/L (56-112); ASPARTATE AMNIOTRANSFERASE,AST 52 IU/L (5-25); BILIRUBIN TOTAL 0.5 mg/dL (0.1-1.3); BLOOD UREA NITROGEN,BUN 54 mg/dL (7-18); BUN/CREATININE RATIO 25.7 (9-20); CALCIUM 8.2 mg/dL (8.6-10.2); CARBON DIOXIDE,CO2 13 mmol/L (21-32); CHLORIDE,CL 101 mmol/L (100-110); ESTIMATED GFR 32 mL/min (>60); GLUCOSE RANDOM 219 mg/dL (80-116); POTASSIUM,K 3.7 mmol/L (3.5-5.3); PROTEIN TOTAL,TP 9.3 g/dL (6.0-8.0); SODIUM,NA 136 mmol/L (135-145)
[2024-02-15 02:27] LABS: CREATININE 2.1 mg/dL (0.70-1.30); TROPONIN I 125.8 pg/mL (4.0-60.3)
[2024-02-15 02:35] LABS: BAND PERCENT MAN 2 % (0-6); EOSINOPHILS PERCENT MAN 3 % (0-5); LYMPHOCYTES PERCENT MAN 21 % (13-37); MONOCYTES PERCENT MAN 4 % (4-12); SEG NEUTROPHILS PERCENT MAN 70 % (46-82)
[2024-02-15 02:36] LABS: INR 1.09 (1.00-1.24); PROTHROMBIN TIME 11.2 sec (9.0-11.1)
[2024-02-15] MEDS ORDERED: Heparin Sodium 5,000 Units/ML Vial IVPUSH ONE (02:47)
[2024-02-15] MEDS: Sodium Chloride 0.9% 1,000 ML IV ONE (03:00)
[2024-02-15] MEDS: Heparin Sodium 5,000 Units/ML Vial IVPUSH ONE (03:01)
[2024-02-15] MEDS: Heparin Sodium/0.45% NaCl 25,000 UNITS/500 ML BAG IV SCH (03:15)
[2024-02-15 03:26] VITALS: BP 127/54; PULSE 74
== END 2024-02-15 03:30 ==
LOC: FB.ED 01:51
DX: I21.4 Non-ST elevation (NSTEMI) myocardial infarction (principal); J44.9 Chronic obstructive pulmonary disease, unspecified; N28.9 Disorder of kidney and ureter, unspecified; D64.9 Anemia, unspecified; E78.00 Pure hypercholesterolemia, unspecified; I10 Essential (primary) hypertension; F17.210 Nicotine dependence, cigarettes, uncomplicated; Z95.0 Presence of cardiac pacemaker; Z79.01 Long term (current) use of anticoagulants; Z79.899 Other long term (current) drug therapy; Z88.8 Allergy status to other drugs, medicaments and biological substances
CPT/HCPCS: 71045; 80053; 83880; 84484; 85025; 85379; 85610; 93005; 93010; 96374; 96375; 99285; 99291; A9270; J1644; J3010; J7030

== ENCOUNTER 2024-06-26 06:54 | Day surgery (SDC) | payer MEDICARE, MEDICAID ==
[~2024-06-26 06:54] MED LIST: Sodium Chloride 0.9% 10 ML Syringe FLUSH PRN
[2024-06-26] MEDS ORDERED: Midazolam 1 MG/ML 2 ML SDV IV ONE (06:55)
[2024-06-26] MEDS: Lactated Ringers 1,000 ML IV PRN (08:00)
[2024-06-26] MEDS: acetaZOLAMIDE 500 MG Cap.ER PO ONE (09:35)
[2024-06-26 11:34] VITALS: BP 135/82; PULSE 86
== END 2024-06-26 10:16 | disposition home or self-care (01) ==
LOC: FB.SDS 06:54
PROVIDERS: ATTEND Ophthalmology
DX: H25.13 Age-related nuclear cataract, bilateral (principal); H21.81 Floppy iris syndrome; H35.3131 Nonexudative age-related macular degeneration, bilateral, early dry stage; H01.001 Unspecified blepharitis right upper eyelid; H01.004 Unspecified blepharitis left upper eyelid; I13.0 Hypertensive heart and chronic kidney disease with heart failure and stage 1 through stage 4 chronic kidney disease, or unspecified chronic kidney disease; N18.32 Chronic kidney disease, stage 3b; I50.20 Unspecified systolic (congestive) heart failure; I25.10 Atherosclerotic heart disease of native coronary artery without angina pectoris; I48.19 Other persistent atrial fibrillation; J44.9 Chronic obstructive pulmonary disease, unspecified; F17.210 Nicotine dependence, cigarettes, uncomplicated; Z79.01 Long term (current) use of anticoagulants; Z79.899 Other long term (current) drug therapy
CPT/HCPCS: 00142; 99100; A9270-GY; J2250; J7120; V2632

== ENCOUNTER 2024-07-10 07:53 | Day surgery (SDC) | payer MEDICARE, MEDICAID ==
[~2024-07-10 07:53] MED LIST changes: +Lactated Ringers 1,000 ML IV PRN
[2024-07-10] MEDS ORDERED: Midazolam 1 MG/ML 2 ML SDV IV ONE (07:54)
[2024-07-10] MEDS ORDERED: Sodium Chloride 0.9% 10 ML Syringe IV ONE (07:54)
[2024-07-10] MEDS ORDERED: Lactated Ringers 1,000 ML IV PRN (08:00)
[2024-07-10] MEDS: Sodium Chloride 0.9% 10 ML Syringe FLUSH PRN (08:26)
[2024-07-10] MEDS: acetaZOLAMIDE 500 MG Cap.ER PO ONE (10:06)
[2024-07-10 11:18] VITALS: PULSE 88
[2024-07-10 11:19] VITALS: BP 149/77
== END 2024-07-10 10:35 | disposition home or self-care (01) ==
LOC: FB.SDS 07:53
PROVIDERS: ATTEND Ophthalmology
DX: H25.9 Unspecified age-related cataract (principal); H21.81 Floppy iris syndrome; I25.10 Atherosclerotic heart disease of native coronary artery without angina pectoris; I13.0 Hypertensive heart and chronic kidney disease with heart failure and stage 1 through stage 4 chronic kidney disease, or unspecified chronic kidney disease; N18.32 Chronic kidney disease, stage 3b; I50.20 Unspecified systolic (congestive) heart failure; J43.8 Other emphysema; I48.19 Other persistent atrial fibrillation; F17.210 Nicotine dependence, cigarettes, uncomplicated; Z79.01 Long term (current) use of anticoagulants; Z79.899 Other long term (current) drug therapy
CPT/HCPCS: 66982; A9270; J2250; V2632; 00142; 99100